=== PATIENT | male | born 1955 | race Caucasian/White ===

== ENCOUNTER 2016-06-01 04:02 | Inpatient (IN) ==
--- NOTE | 2016-05-27 13:03 | EKG Report ---
Test Performed on : 05/27/2016 12:25:16 PM Test Reason : PAT Blood Pressure : / mmHG Vent. Rate : 087 BPM Atrial Rate : 087 BPM P-R Int : 176 ms QRS Dur : 074 ms QT Int : 340 ms P-R-T Axes : 060 017 071 degrees QTc Int : 409 ms Sinus rhythm. with occasional premature ventricular complexes. Otherwise normal ECG When compared with ECG of 03-OCT-2013 06:35, premature ventricular complexes. are now present Confirmed by Romeo MCKINLEY, Marcus Fontenot ([id number]) on 05/28/2016 5:48:17 PM
[2016-05-27 13:16] LABS: MANUAL DIFF NEEDED? NO; URINE MICRO REVIEW NEEDED? NO; URINE SOURCE CLEAN CATCH
[2016-05-27 13:22] LABS: BASO% 0.4 % (0.0-0.8); EOS# 0.86 X1000 (0.0-0.7); EOS% 6.8 % (0.0-10.0); HEMATOCRIT 47.7 % (42.0-52.0); HEMOGLOBIN 15.7 g/dL (14.0-18.0); IMM GRAN# 0.06 X1000 (0.0-0.04); IMM GRAN% 0.5 % (0.0-0.5); LYMPH# 4.31 X1000 (1.2-3.4); LYMPH% 34.2 % (20.5-51.1); MCH 29.4 PG (27-31); MCHC 32.9 g/dL (33-37); MCV 89.3 FL (81-99); MONO# 0.64 X1000 (0.11-0.59); MONO% 5.1 % (1.7-9.3); MPV 8.8 FL (7.4-10.4); PLT 282 X1000 (130-400); RBC 5.34 XMIL (4.7-6.1)
[2016-05-27 13:32] LABS: INR 1.06; PROTIME 11.2 Seconds (9.2-11.7); PTT 29.3 Seconds (22.0-36.0)
[2016-05-27 13:38] LABS: AGAP 13; BUN 28 mg/dL (8-22); CALCIUM 9.2 mg/dL (8.8-10.2); CHLORIDE 101 mmol/L (98-107); COSMO 283; POTASSIUM 4.2 mmol/L (3.5-5.1); SODIUM 138 mmol/L (136-145); TCO2 24 mmol/L (25-35)
[2016-05-27 13:57] LABS: URINE WBC <10 /HPF (<10)
[2016-05-27 13:58] LABS: BILIRUBIN URINE NEGATIVE (NEGATIVE); BLOOD URINE MODERATE (NEGATIVE); COLOR YELLOW; GLUCOSE URINE NEGATIVE (NEGATIVE); NITRITE URINE NEGATIVE (NEGATIVE); PROTEIN URINE 30 mg/dL (NEGATIVE); TURBIDITY URINE CLEAR (CLEAR); UR EPITHELIAL CELLS <10 /HPF (<10); URINE BACTERIA NEGATIVE /HPF; UROBILINOGEN URINE 2 mg/dL (NORMAL)
[2016-05-27 13:59] LABS: LEUKOCYTES URINE SMALL (NEGATIVE)
[2016-06-01] MEDS ORDERED: COLACE ONE (05:59)
[2016-06-01] MEDS ORDERED: LYRICA ONE (05:59)
[2016-06-01] MEDS ORDERED: PEPCID ONE (05:59)
[2016-06-01] MEDS ORDERED: LR 1,000 ML ONE (06:00)
[2016-06-01] MEDS ORDERED: CELEBREX ONE (06:00)
[2016-06-01] MEDS ORDERED: VANCOMYCIN 1 GM/NS 1 GM/250 ML IVPB ONE (06:01)
[2016-06-01] MEDS: REGLAN ONE ×2 (06:22→06:23)
[2016-06-01] MEDS ORDERED: CYKLOKAPRON 1,000 MG/NS 1,000 MG/100 ML IVPB ONE (07:07)
[2016-06-01] MEDS ORDERED: MARCAINE 0.25% PF/EPI 1:200,000 ONE (07:07)
[2016-06-01] MEDS ORDERED: SODIUM CHLORIDE 0.9% ONE (07:07)
[2016-06-01] MEDS ORDERED: TORADOL ONE (07:07)
[2016-06-01] MEDS ORDERED: DURAMORPH ONE (07:07)
[2016-06-01] MEDS ORDERED: CLAVE SECONDARY SET 11953 ONE (07:08)
[2016-06-01] MEDS ORDERED: NEOSPORIN G.U. IRRIGANT ONE (07:08)
[2016-06-01] MEDS ORDERED: EXPAREL 1.3% ONE (07:08)
[2016-06-01 08:49] LABS: URINE MICRO REVIEW NEEDED? NO; URINE SOURCE CATH
[2016-06-01 08:59] LABS: BILIRUBIN URINE NEGATIVE (NEGATIVE); BLOOD URINE SMALL (NEGATIVE); COLOR YELLOW; GLUCOSE URINE NEGATIVE (NEGATIVE); LEUKOCYTES URINE NEGATIVE (NEGATIVE); NITRITE URINE NEGATIVE (NEGATIVE); PH URINE 6.5; PROTEIN URINE 50 mg/dL (NEGATIVE); SP GRAVITY URINE 1.024; TURBIDITY URINE CLEAR (CLEAR); UROBILINOGEN URINE 2 mg/dL (NORMAL)
[2016-06-01 09:00] LABS: UR EPITHELIAL CELLS <10 /HPF (<10); URINE BACTERIA NEGATIVE /HPF; URINE WBC <10 /HPF (<10)
[2016-06-01] MEDS ORDERED: NS 1,000 ML ONE (10:16)
[2016-06-01] MEDS ORDERED: VERSED ONE (10:17)
[2016-06-01] MEDS ORDERED: FENTANYL ONE (10:17)
[2016-06-01] MEDS ORDERED: DIPRIVAN 1% ONE (10:18)
[2016-06-01] MEDS ORDERED: ZOFRAN ONE (10:20)
[2016-06-01] MEDS ORDERED: ROBINUL ONE (10:20)
[2016-06-01] MEDS ORDERED: NEOSTIGMINE ONE (10:20)
[2016-06-01] MEDS ORDERED: STERILE WATER INJ. ONE (10:20)
[2016-06-01] MEDS ORDERED: NORCURON ONE (10:20)
[2016-06-01] MEDS ORDERED: NEO-SYNEPHRINE ONE (10:20)
[2016-06-01] MEDS ORDERED: EPHEDRINE ONE (10:20)
[2016-06-01] MEDS ORDERED: SODIUM CHLORIDE 0.9% 10 ML ONE (10:20)
[2016-06-01] MEDS ORDERED: OFIRMEV 1000 MG/ISOTONIC SOLN 1,000 MG/100 ML BOTTLE ONE (10:21)
[2016-06-01] MEDS ORDERED: QUELICIN (DOSE) ONE (10:21)
[2016-06-01] MEDS ORDERED: LR 2,000 ML ONE (10:21)
[2016-06-01] MEDS ORDERED: XYLOCAINE-MPF 2% ONE (10:21)
[2016-06-01] MEDS: MORPHINE ONE ×3 (10:25→10:42)
--- NOTE | 2016-06-01 12:29 | OPERATIVE NOTE ---
PROCEDURE DATE: 06/01/2016 PREOPERATIVE DIAGNOSIS: Right hip degenerative joint disease. POSTOPERATIVE DIAGNOSIS: Right hip degenerative joint disease. PROCEDURE PERFORMED: Right hip total hip arthroplasty using a [employer] orthopedic surgical size 9 lateral offset stem with a -4, 36 mm head and a 54 mm hemispherical shell with a 36 mm inside diameter acetabular liner. SURGEON: Fermin Huggins MD AUTOMATIC CHIEF: LYNNE Shelton ANESTHESIA: General. COMPLICATIONS: None. BLOOD LOSS: Minimal. DRAINS: Hemovac x1. DESCRIPTION OF PROCEDURE: The patient was brought to the operative suite and placed in supine position. After successful administration of general anesthesia, the patient was placed in the supine position on the OSI bed and then the right hip was prepped and draped in the usual sterile fashion. A longitudinal incision was made beginning 2 cm distal and 2 cm lateral to the anterior superior iliac spine. It was extended distally and slightly laterally, 8 cm. It was dissected sharply through skin and subcutaneous tissue down to the tensor fascia. The tensor fascia was then incised and then the muscle was elevated off the fascia and then the deep tensor fascia was incised as well, electrocauterizing the circumflex vessels, exposing the anterior capsule. A T- capsulotomy was performed and then the femoral neck cut was made with an oscillating saw. The labrum was resected. The acetabulum was serially reamed to a 54 to accept a 54 cup. The 54 cup was then driven into place in the proper amount of inclination and anteversion. It was found to have excellent purchase. Was found to be in excellent position under fluoroscopy. The liner was then locked onto the shell. Attention was then directed to the femur. It was externally rotated, extended, adducted, and elevated out of the wound with the hook on the OSI bed. The lateral neck was rongeured. The canal was serially broached to a size 9. A size 9 high offset, -4 stem was trialed and found to have excellent leg length, offset, and stability of the hip and good fit and fill of the stem. The trial was removed. The definitive stem was locked onto the femur. Then, the ceramic -4, 36 mm head was locked onto the Bal taper and the hip was again reduced. It was again found to be in excellent position. The hip was copiously infiltrated with Exparel, including the posterior capsule, anterior capsule, anterior musculature, and subcutaneous tissue. The anterior capsule was repaired with #2 FiberWire. A drain was placed deep to the tensor fascia and buried around the neck. The tensor fascia was closed with 0 Vicryl. The skin edge was approximated with 2-0 Vicryl. The skin was closed with skin falguni and a sterile dressing was applied. The patient tolerated the procedure well without complication. At the end of the procedure, all counts were correct x2. The patient was transferred to the recovery room in stable condition. cc: Fermin Huggins MD
[2016-06-01] MEDS: NS 1,000 ML IV SCH ×2 (13:03→21:49)
[2016-06-01] MEDS ORDERED: AMBIEN PO PRN (13:15)
[2016-06-01] MEDS ORDERED: ZOFRAN IV PRN (13:15)
[2016-06-01] MEDS ORDERED: MILK OF MAGNESIA PO PRN (13:15)
[2016-06-01] MEDS ORDERED: MORPHINE IV PRN (13:15)
[2016-06-01] MEDS: ULTRAM PO SCH ×2 (13:40→18:14)
[2016-06-01] MEDS ORDERED: CYKLOKAPRON 1,000 MG in NS 100 ML IV ONE (14:00)
[2016-06-01] MEDS: TYLENOL PO SCH ×2 (15:07→21:49)
[2016-06-01] MEDS ORDERED: VANCOMYCIN 1 GM/NS 1 GM/250 ML IVPB IV ONE (19:30)
[2016-06-01] MEDS: PERIDEX MT SCH (21:48)
[2016-06-01] MEDS: CELEBREX PO SCH (21:48)
[2016-06-01] MEDS: COLACE PO SCH (21:48)
[2016-06-01] MEDS: OXY IR PO PRN (21:48)
[2016-06-02] MEDS: ULTRAM PO SCH ×3 (00:57→14:25)
[2016-06-02] MEDS: OXY IR PO PRN (04:53)
[2016-06-02] MEDS: TYLENOL PO SCH ×2 (04:53→09:24)
[2016-06-02] MEDS ORDERED: XARELTO PO SCH (06:00)
[2016-06-02 06:31] LABS: HEMATOCRIT 33.4 % (42.0-52.0); HEMOGLOBIN 10.6 g/dL (14.0-18.0)
[2016-06-02] MEDS ORDERED: PRILOSEC PO SCH ×2 (07:00)
[2016-06-02] MEDS: NS 1,000 ML IV SCH (07:49)
--- NOTE | 2016-06-02 08:01 | PROGRESS NOTE ---
DATE: 06/02/2016 SUBJECTIVE: Agustín Hester is a 60-year-old male who is postoperative day 1 from a right anterior total hip arthroplasty. He has no complaints. OBJECTIVE: General: He is a well-developed, well-nourished male. He is alert, oriented, and cooperative exam. Vital signs: Stable. He is afebrile. Laboratory: His hemoglobin is 10.6. His hematocrit is 33.4. Extremities: His leg is neurovascularly intact without sign of infection. He does have some drainage through his dressing. He has had a fair amount of output from his drain. ASSESSMENT: Stable after right anterior total hip arthroplasty. PLAN: We will change his dressing. Discontinue his IV, Osei, and drain, and work on physical therapy with him. It is possible that he can go home later today, depending upon how he progresses with physical therapy. cc: Fermin Huggins MD
[2016-06-02] MEDS ORDERED: GLUCOPHAGE PO SCH (09:00)
[2016-06-02] MEDS ORDERED: CALTRATE 600 + D PO SCH (09:00)
[2016-06-02] MEDS ORDERED: PRINIVIL PO SCH (09:00)
[2016-06-02] MEDS ORDERED: TRUSOPT 2% OPH SOLN BOTH EYES SCH (09:00)
[2016-06-02] MEDS ORDERED: ZYLOPRIM PO SCH (09:00)
[2016-06-02] MEDS ORDERED: NEURONTIN PO SCH (09:00)
[2016-06-02] MEDS ORDERED: DECADRON IV ONE (09:00)
[2016-06-02] MEDS ORDERED: CYMBALTA PO SCH (09:00)
[2016-06-02] MEDS: PERIDEX MT SCH (09:23)
[2016-06-02] MEDS: CELEBREX PO SCH (09:24)
[2016-06-02] MEDS: COLACE PO SCH (09:25)
[2016-06-02] MEDS: PERCOCET-10 PO SCH ×2 (09:25→14:25)
[2016-06-02 12:06] VITALS: BP 146/79
--- NOTE | 2016-06-02 18:26 | DISCHARGE SUMMARY ---
ADMISSION DATE: 06/01/2016 DISCHARGE DATE: 06/02/2016 DISCHARGE DIAGNOSIS: Right hip degenerative joint disease status post right total hip arthroplasty. DISCHARGE MEDICATIONS: See discharge medication list. DISPOSITION: The patient is discharged home. DISCHARGE INSTRUCTIONS: 1. Total hip arthroplasty protocol. 2. He is instructed to return to see Dr. Huggins next . HOSPITAL COURSE: On the day of admission, the patient underwent a right total hip arthroplasty. His postoperative course was unremarkable. At discharge he is afebrile, tolerating a regular diet, and ambulating well with physical therapy. His wound is clean, dry, and intact without sign of infection. He is discharged home in stable condition with instructions to follow up as described above. Dictated by LYNNE Shelton for Fermin Huggins MD cc: LYNNE Shelton MD
[2016-06-02] MEDS ORDERED: XALATAN 0.005% OPH SOLN BOTH EYES SCH (21:00)
[2016-06-02] MEDS ORDERED: PRAVACHOL PO SCH (21:00)
== END 2016-06-02 15:41 | disposition home health service (06) ==
LOC: SURHOLD 04:02 → 4N 09:15
PROVIDERS: ADMIT Orthopaedic Surgery; ATTEND Orthopaedic Surgery